=== PATIENT | female | born 1950 | race Hispanic/Latino ===

== ENCOUNTER → 2020-02-07 | Outpatient (CLI) | payer OTHER ==
--- NOTE | 2020-02-07 13:18 | Diagnostic Imaging Report ---
Exam: Bilateral knees, 3 views History: Bilateral knee pain Comparison: None. Findings: Left knee: No acute, displaced fracture or dislocation. Mild medial compartment joint space narrowing with small marginal osteophytes. No definite joint effusion. Soft tissues unremarkable. Right knee: No acute, displaced fracture or dislocation. Moderate medial compartment joint space narrowing, with subchondral sclerosis and marginal osteophytosis. The patellofemoral compartment is affected to a lesser extent. Small nonspecific suprapatellar effusion. Soft tissues otherwise unremarkable. 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 Moderate medial and patellofemoral compartment degenerative arthrosis of the right knee with a small nonspecific suprapatellar joint effusion. Signed by: Dr. David Calero M.D. on 02/07/2020 1:15 PM
== END ==
LOC: RAD 11:48
PROVIDERS: ATTEND Family Medicine
DX: M25.562 Pain in left knee (principal); M25.561 Pain in right knee; M17.0 Bilateral primary osteoarthritis of knee